=== PATIENT | male | born 2000 | race Caucasian/White ===

== ENCOUNTER 2020-12-07 09:20 | Emergency (ER) | payer OTHER, MEDICAID, SELFPAY ==
[2020-12-07 09:46] VITALS: BP 129/83; PULSE 109; RESP 16; TEMP 37.6; O2SAT 98; BMI 23.7
[2020-12-07 11:08] VITALS: BP 138/64; PULSE 100; TEMP 38.2; O2SAT 97
--- NOTE | 2020-12-07 12:25 | ED.URI ---
HPI - URI/Sore Throat General Chief Complaint: Upper Respiratory Symptoms Stated Complaint: sore throat Time Seen by Provider: 12/07/20 12:19 Source: patient Mode of arrival: Ambulatory Limitations: no limitations History of Present Illness HPI Narrative: Patient is a 20-year-old male who presents with right-sided sore throat ongoing for 1 week. It hurts to swallow. He did receive his COVID vaccination a few months back. He denies any cough. He does have low-grade temp as well. Related Data Previous Rx's Medication Instructions Recorded amoxicillin 500 mg capsule 500 mg PO BID #14 cap 12/07/20 Allergies Allergy/AdvReac Type Severity Reaction Status Date / Time No Known Drug Allergies Allergy Verified 12/07/20 09:49 Review of Systems Review of Systems Narrative: GENERAL: Denies chills, fatigue, malaise, fever, sweats, travel HEENT: See HPI RESPIRATORY: Denies dyspnea, cough, wheezing, hemoptysis, sputum. CARDIOVASCULAR: Denies chest pain, palpitations, orthopnea, edema GASTROINTESTINAL: Denies nausea, vomiting, abdominal pain, diarrhea, constipation, melena. : Denies dysuria, frequency, incontinence, hematuria, urinary retention, flank pain. MUSCULOSKELETAL: Denies weakness, joint pain, or bony pain SKIN: No rash, no erythema, no pruritus NEUROLOGIC: Denies weakness, dizziness, headache, numbness, change in speech, confusion PSYCHIATRIC: No concerning psychosocial issues. 12 point review of systems is negative except for those stated above and HPI Patient History Substance Use Type: does not use Exam Initial Vital Signs Initial Vital Signs: Vital Signs Temperature 99.6 F 12/07/20 09:46 Pulse Rate 109 H 12/07/20 09:46 Respiratory Rate 16 12/07/20 09:46 Blood Pressure 129/83 12/07/20 09:46 Pulse Oximetry 98 12/07/20 09:46 GENERAL: Well-appearing, well-nourished and in no acute distress. HEENT: Head atraumatic,EOMI, pupils reactive, neck is supple no meningeal sign EARS: Tympanic membranes visualized, no erythema or bulging, no hemotympanum right ear does have cerumen impaction tympanic membrane is not visualized PHARYNX: Erythematous right side no uvula swelling or deviation maintaining airway CARDIOVASCULAR: Regular rate and rhythm without murmurs, rubs or gallops. RESPIRATORY: Breath sounds equal bilaterally, no wheezes rales or rhonchi. EXTREMITIES: Normal range of motion, no clubbing or edema. Neurovascularly intact NEUROLOGICAL: Alert and oriented x4.Normal gait and speech. SKIN: Warm, dry, no laceration, no petechiae, no rashes or lesions. Course Orders Ordered: ED Orders 12/07/20 09:50 Throat Culture Stat Vital Signs Vital signs: Vital Signs - 8 hr 12/07/20 12:42 Temperature 100 F H Pulse Rate 90 Respiratory Rate 18 Blood Pressure 138/74 Pulse Oximetry 99 MDM - URI/Sore Throat Lab Data Labs: Point of Care Testing Rapid Strep A Negative MDM Narrative Medical decision making narrative: Rapid strep is negative however right side is significantly erythematous. Backup culture is pending. Will go ahead and treat him it has been ongoing for 7 days low-grade fever at this time. Discharge Plan Departure Patient Disposition: Home Clinical Impression: Pharyngitis Qualifiers: Pharyngitis/tonsillitis etiology: unspecified etiology Qualified Code(s): J02.9 - Acute pharyngitis, unspecified Instructions: DI for Strep Throat Activity Restrictions/Additional Instructions: *You have been diagnosed with pharyngitis *What to do: At this time her initial strep test is negative however you do have a culture that is pending. Will treat for strep *Continue to take medications as directed Amoxicillin 500 mg twice daily for 7 *Follow up with your primary care provider in 2-3 days *Return to ER if you should have difficulty swallowing all persistent pain or any new, worsening or concerning symptoms Prescriptions: New amoxicillin 500 mg capsule 500 mg PO BID Qty: 14 RF: 0 Referrals: Alexys Díaz MD [Primary Care Provider] -
[2020-12-07 12:42] VITALS: BP 138/74; PULSE 90; RESP 18; TEMP 37.7; O2SAT 99
== END 2020-12-07 12:42 | disposition home or self-care (01) ==
PROVIDERS: Emergency Provider Emergency Medicine; PCP Pediatrics
DX: J02.9 Acute pharyngitis, unspecified (principal)
CPT/HCPCS: 87070; 87880; 99282